=== PATIENT | female | born 1960 | race Caucasian/White ===

== ENCOUNTER 2018-06-06 15:15 | Emergency (ER) | payer BC, OTHER ==
[2018-06-06 15:36] VITALS: BP 174/74
[2018-06-06] MEDS ORDERED: traMADol TAB* 50 MG PO ONE (16:10)
--- NOTE | 2018-06-06 16:46 | UC ---
Abdominal Pain Female HPI - HPI Summary HPI Summary: 57 YO FEMALE who comes to clinic today with complaint of upper abdominal pain. This pain started 5 days ago. It started in the right upper quadrant. It is worse with eating. It severe at its worst. It is moderate now. It radiates to her right shoulder blade and crossed the abdomen to the left side. No fevers or chills. Patient has a decreased appetite. No shortness of breath or chest pain. The patient does not want to go to the emergency department. She saw her primary care provider this morning who has drawn labs and then recommended coming to the clinic to get an ultrasound. - History of Current Complaint Chief Complaint: UCAbdominalPain Stated Complaint: SEVERE ABD PAIN Time Seen by Provider: 06/06/18 16:03 Pain Intensity: 8 Allergies/Adverse Reactions: Allergies Allergy/AdvReac Type Severity Reaction Status Date / Time Penicillins Allergy Anaphylatic Verified 06/06/18 15:38 Shock Home Medications: Home Medications Fluticasone-Salmeterol 100-50* [Advair Diskus 100-50*] 1 puff INH BID 06/06/18 [ History Confirmed 06/06/18] Loratadine [Claritin] 10 mg PO DAILY 06/06/18 [History Confirmed 06/06/18] Losartan TAB* [Cozaar TAB*] 50 mg PO DAILY 06/06/18 [History Confirmed 06/06/18] Omeprazole CAP* [Prilosec CAP* 20 MG] 40 mg PO DAILY 06/06/18 [History Confirmed 06/06/18] Tiotropium CAP.INH* [Spiriva CAP.INH*] 1 cap INH DAILY 06/06/18 [History Confirmed 06/06/18] busPIRone TAB* [Buspar TAB *] 15 mg PO DAILY 06/06/18 [History Confirmed ] PMH/Surg Hx/FS Hx/Imm Hx Cardiovascular History: Hypertension Respiratory History: COPD - Surgical History Surgical History: None - Family History Known Family History: Positive: Cardiac Disease, Hypertension - Social History Alcohol Use: Daily Substance Use Type: None Smoking Status (MU): Heavy Every Day Tobacco Smoker Review of Systems Constitutional: Negative Skin: Negative Eyes: Negative ENT: Negative Respiratory: Negative Cardiovascular: Negative Gastrointestinal: Abdominal Pain - UPPER, SEE HPI Genitourinary: Negative Motor: Negative Neurovascular: Negative Musculoskeletal: Negative Neurological: Negative Psychological: Negative Is Patient Immunocompromised?: No All Other Systems Reviewed And Are Negative: Yes Physical Exam Triage Information Reviewed: Yes Appearance: Well-Nourished, Pain Distress - MILD Vital Signs: Initial Vital Signs Temp 97.8 F 06/06/18 15:31 Pulse 80 06/06/18 15:31 Resp 20 06/06/18 15:31 BP 174/74 06/06/18 15:31 Pulse Ox 100 06/06/18 15:31 Vital Signs Reviewed: Yes Eye Exam: Normal ENT Exam: Normal Neck exam: Normal Neck: Positive: Supple Respiratory Exam: Normal Respiratory: Positive: Lungs clear, Normal breath sounds, No respiratory distress Cardiovascular Exam: Normal Cardiovascular: Positive: RRR Abdomen Description: Positive: Other: - Tender to palpation right upper quadrant Bowel Sounds: Positive: Present Musculoskeletal Exam: Normal Musculoskeletal: Positive: Strength Intact, ROM Intact Neurological Exam: Normal Neurological: Positive: Alert Psychological Exam: Normal Skin Exam: Normal Abd Pain Female Course/Dx - Course Course Of Treatment: When I saw the patient I recommended that she be seen in the emergency department. She explained she did not want to be seen in the emergency department. I Ordered an ultrasound for gallbladder however in the clinic it was after hours for ultrasound and ultrasound was unavailable. Patient requested pain medications started her on tramadol. I explained to her that if the pain did get worse she needs to go the emergency department. Also explained if she had a fever or felt ill she needed to go to the emergency department. The patient's daughter was present with her. At discharge her recommended further evaluation in the emergency department. - Differential Dx/Diagnosis Provider Diagnoses: UPPER ABDOMINAL PAIN Discharge - Sign-Out/Discharge Documenting (check all that apply): Patient Departure All imaging exams completed and their final reports reviewed: No Studies - Discharge Plan Condition: Stable Disposition: HOME-RECOMMEND TO ED Prescriptions: traMADol TAB* [Ultram*] 50 mg PO Q6HR PRN #6 tab MDD 4 PRN Reason: Pain Patient Education Materials: Acute Abdominal Pain (ED), Epigastric Pain (ED) Referrals: Angelica Vasquez [Primary Care Provider] - Additional Instructions: GO TO THE EMERGENCY DEPARTMENT FOR FURTHER EVALUATION OF YOUR ABDOMINAL PAIN - Billing Disposition and Condition Condition: STABLE Disposition: Home-Recommend to ED
== END 2018-06-06 17:14 | disposition home health service (06) ==
LOC: UCCORT 15:15
DX: R10.10 Upper abdominal pain, unspecified (principal); I10 Essential (primary) hypertension; J44.9 Chronic obstructive pulmonary disease, unspecified; Z88.0 Allergy status to penicillin; F17.200 Nicotine dependence, unspecified, uncomplicated
CPT/HCPCS: 99202; A9270-GY; G0463

== ENCOUNTER 2018-06-07 12:07 | Emergency (ER) | payer OTHER ==
--- NOTE | 2018-06-07 17:49 | RAD ---
HISTORY: Right upper quadrant pain COMPARISONS: None TECHNIQUE: Multiple transverse and longitudinal ultrasound images were obtained of the right upper quadrant of the abdomen using grayscale and color Doppler imaging. FINDINGS: LIVER: The liver is normal in shape, size, contour, and echogenicity. There are no focal parenchymal masses. There is normal hepatopedal flow of the portal vein on Doppler imaging. BILIARY TREE: There is dilatation of common duct which measures up to 1.3 cm in caliber. GALLBLADDER: The gallbladder is well-visualized. Sludge is noted within the gallbladder. There is no cholelithiasis, gallbladder wall thickening, pericholecystic fluid, or sonographic Brooks sign. PANCREAS: There is ill-defined soft tissue density at the level of the pancreatic head measuring 2.9 x 2.6 x 2.4 cm. RIGHT KIDNEY: The right kidney is normal in shape, size, contour, and echogenicity. There is no hydronephrosis or nephrolithiasis. The right kidney measures 10.9 x 4.9 x 5 cm. AORTA AND IVC: The aorta and IVC are unremarkable. FLUID: There are no pleural effusions. There is no free fluid within the hepatorenal recess. OTHER FINDINGS: None. IMPRESSION: BILIARY DILATATION WITH ILL-DEFINED SOFT TISSUE DENSITY OF THE PANCREATIC HEAD WHICH MAY REPRESENT NEOPLASM OF THE PANCREATIC HEAD. RECOMMEND CONSIDERATION OF FURTHER EVALUATION WITH MULTIPHASE PANCREATIC PROTOCOL CONTRAST-ENHANCED CT OF THE ABDOMEN OR CONTRAST-ENHANCED MRI OF THE ABDOMEN.
== END 2018-06-07 15:00 | disposition home health service (06) ==
LOC: UCCORT 12:07
DX: K86.9 Disease of pancreas, unspecified (principal); R10.11 Right upper quadrant pain; K83.8 Other specified diseases of biliary tract; F17.210 Nicotine dependence, cigarettes, uncomplicated
CPT/HCPCS: 76705; 99212; G0463